=== PATIENT | female | born 1945 | race Caucasian/White ===

== ENCOUNTER → 2017-02-07 | Outpatient (CLI) | payer MEDICARE ==
[2016-03-12 15:15] VITALS: BP 97/66
[~2017-02-07] MED LIST: ALPH100C PO; AMLO2.5T PO; ASPI-482 PO; ASPI-630 PO; ASPI325T11 PO; DESM0.2T20 PO; FERR-26 PO; GLUC100018 PO; HYDR12.58 PO; MELO15TA6 PO; MULT-208 PO; OMEG1CAP6 PO; OMEP20TA8 PO; OXYC5TAB95 PO; PRAV20TA2 PO; TOLT4CAP PO; VITA1CAP PO
[2017-02-07 10:24] LABS: BASO % 1 % (0-3); EOS % 2 % (0-3); HEMATOCRIT 46.6 % (36.0-47.0); HEMOGLOBIN 15.4 g/dL (12.0-15.5); LYMPH # 1.3 x10^3/uL (1.0-4.8); LYMPH % 24 % (24-48); MEAN CORPUSCULAR HEMOGLOBIN 30 pg (25-35); MEAN CORPUSCULAR HGB CONC 33 g/dL (31-37); MEAN CORPUSCULAR VOLUME 92 fL (79-100); MONO % 8 % (0-9); NEUT % 65 % (31-73); PLATELET COUNT 323 x10^3/uL (140-400); RED BLOOD COUNT 5.08 x10^6/uL (3.50-5.40); RED CELL DISTRIBUTION WIDTH 13.2 % (11.5-14.5); WHITE BLOOD COUNT 5.2 x10^3/uL (4.0-11.0)
--- NOTE | 2017-02-07 10:34 | EKG ---
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 RI6.01 Electronically Signed On 02-08-2017 13:11:11 EMT BASIC by Jonnathan Reynoso
[2017-02-07 11:00] LABS: INR 0.9 (0.8-1.1)
[2017-02-07 11:30] LABS: ALBUMIN 4.2 g/dL (3.4-5.0); CALCIUM 9.1 mg/dL (8.5-10.1); CREATININE 0.7 mg/dL (0.6-1.0); GFR 82.5; POTASSIUM 3.8 mmol/L (3.5-5.1)
[2017-02-07 11:30] LABS: BILIRUBIN,URINE NEGATIVE (NEG); GLUCOSE,URINE NEGATIVE (NEG); NITRITE,URINE NEGATIVE (NEG); PROTEIN,URINE 30 mg/dL (NEG-TRACE); UROBILINOGEN,URINE 0.2 mg/dL (0.2 mg/dL)
[2017-02-07 11:46] LABS: BACTERIA,URINE FEW /HPF (0-FEW); SQUAMOUS EPITHELIAL CELL,UR OCC /LPF
--- NOTE | 2017-02-07 16:11 | RAD ---
2 views of the Chest 02/07/2017 12:07 PM Indication: PRE-OP CHEST , KNEE SURGERY Comparison: 2 views of the chest February 16, 2016 Findings: No new focal consolidation or infiltrate is identified. Exaggerated thoracic kyphosis noted. Large hiatal hernia noted similar to prior study. Linear opacity in the right lung base consistent with scarring similar to prior exam. No pneumothorax or pleural effusion is identified. No acute osseous changes are seen. Impression: Stable chest. No acute cardiopulmonary process is seen
== END | disposition home or self-care (01) ==
LOC: SURGPAT 09:04
PROVIDERS: ATTEND Orthopaedic Surgery
DX: Z01.818 Encounter for other preprocedural examination (principal); K44.9 Diaphragmatic hernia without obstruction or gangrene; M40.294 Other kyphosis, thoracic region
CPT/HCPCS: 36415; 71020; 80048; 81001; 82040; 82306; 85025; 85610; 85651; 85730; 87086; 87641; 93005

== ENCOUNTER 2017-03-08 08:48 | Inpatient (IN) | payer MEDICARE ==
[~2017-03-08 08:48] MED LIST changes: +ACETAMINOPHEN 500 MG TABLET PO; -ALPH100C PO; -AMLO2.5T PO; -ASPI-482 PO; -ASPI-630 PO; -ASPI325T11 PO; -DESM0.2T20 PO; -FERR-26 PO; -GLUC100018 PO; -HYDR12.58 PO; +KETOROLAC 30 MG, ROPIVacaine 0.5% PF 60 ML, EPINEPHrine 0.5 MG in IV NORMAL SALINE 100M... IV; +LIDOCAINE 1% PF 2 ML VIAL. ID; -MELO15TA6 PO; +MELOXICAM 7.5 MG TABLET PO; -MULT-208 PO; -OMEG1CAP6 PO; -OMEP20TA8 PO; +ONDANSETRON PF 4 MG/2 ML VIAL. IV; -OXYC5TAB95 PO; -PRAV20TA2 PO; +PROCHLORPERAZINE 10 MG/2 ML VIAL. IV; -TOLT4CAP PO; -VITA1CAP PO; +fentaNYL PF VIAL 100 MCG/2 ML VIAL IV
[2017-03-08] MEDS ORDERED: LIDOCAINE 2% PF Vial for OR 5 ML VIAL. (09:14)
[2017-03-08] MEDS ORDERED: MIDAZOLAM HCL/PF 2 MG/2 ML VIAL. (09:14)
[2017-03-08] MEDS ORDERED: ONDANSETRON PF 4 MG/2 ML VIAL. (09:14)
[2017-03-08] MEDS ORDERED: PROPOFOL 20 ML IV (09:14)
[2017-03-08] MEDS ORDERED: FAMOTIDINE 20 MG/2 ML VIAL (09:14)
[2017-03-08] MEDS ORDERED: fentaNYL PF VIAL 100 MCG/2 ML VIAL ×2 (09:14→12:31)
[2017-03-08] MEDS ORDERED: DEXAMETHASONE SOD PHOS 20 MG/5 ML VIAL. (09:14)
[2017-03-08] MEDS ORDERED: ROCURONIUM 50 MG/5 ML VIAL. (09:14)
[2017-03-08] MEDS: IV RINGERS,LACTATED 1000ML 1,000 ML IV (09:47)
[2017-03-08] MEDS ORDERED: KETOROLAC 30 MG, ROPIVacaine 0.5% PF 60 ML, EPINEPHrine 0.5 MG in IV NORMAL SALINE 100M... IV (10:30)
[2017-03-08] MEDS ORDERED: ePHEDrine PF IN SALINE 50 MG/5 ML DISP.SYRIN IV (11:58)
[2017-03-08] MEDS: TRANEXAMIC ACID 1,000 MG in IV NS 50ML -- 1ST BAG INJ (12:10)
[2017-03-08] MEDS: TOBRAMYCIN POWDER 1.2 GM VIAL. (12:50)
[2017-03-08] MEDS: VANCOMYCIN 1 GM VIAL. (12:51)
[2017-03-08] MEDS: KETOROLAC IV (12:52)
[2017-03-08] MEDS: ROPIVACAINE IV (12:52)
[2017-03-08] MEDS: EPINEPHRINE IV (12:52)
[2017-03-08] MEDS: [UNRECOGNIZED DRUG - OTHER] IV (12:52)
[2017-03-08] MEDS: TRANEXAMIC ACID 1,000 MG in IV NS 50ML -- 2ND BAG INJ (13:20)
[2017-03-08] MEDS ORDERED: GLYCOPYRROLATE 1 MG/5 ML VIAL. (13:29)
[2017-03-08] MEDS ORDERED: NEOSTIGMINE METHYLSULFATE 5 MG/5 ML SYRINGE. (13:29)
[2017-03-08] MEDS ORDERED: SEVOFLURANE > 120 MINUTES. IH (13:51)
[2017-03-08] MEDS ORDERED: 0.9 % SODIUM CHLORIDE 10 ML DISP.SYRIN. IV (14:15)
[2017-03-08] MEDS ORDERED: METOCLOPRAMIDE HCL 10 MG/2 ML VIAL. IV (14:15)
[2017-03-08] MEDS ORDERED: ACETAMINOPHEN 325 MG TABLET. PO (14:15)
[2017-03-08] MEDS ORDERED: PROCHLORPERAZINE 5 MG TABLET. PO (14:15)
[2017-03-08] MEDS ORDERED: MORPHINE SULFATE 10 MG/ML VIAL. IV (14:15)
[2017-03-08] MEDS ORDERED: DEXTROSE 50% 25 GM / 50ML DISP.SYRIN. IV (14:15)
[2017-03-08] MEDS ORDERED: MORPHINE SULFATE 4 MG/ML DISP.SYRIN. IV ×2 (14:15)
[2017-03-08] MEDS ORDERED: MORPHINE SULFATE 2 MG/ML DISP.SYRIN. IV (14:15)
[2017-03-08] MEDS ORDERED: fentaNYL PF VIAL 100 MCG/2 ML VIAL IV ×2 (14:15)
[2017-03-08] MEDS ORDERED: oxyCODONE/APAP 5/325 1 TAB TABLET PO (14:15)
[2017-03-08] MEDS ORDERED: CALCIUM CARBONATE 500 MG TAB.CHEW PO (14:15)
[2017-03-08] MEDS ORDERED: diphenhydrAMINE 50 MG/ML VIAL IV (14:15)
[2017-03-08] MEDS ORDERED: ZOLPIDEM 5 MG TABLET. PO (14:15)
[2017-03-08] MEDS ORDERED: PROCHLORPERAZINE 10 MG/2 ML VIAL. IV (14:15)
[2017-03-08] MEDS ORDERED: traMADol 50 MG TABLET PO ×2 (14:15)
[2017-03-08] MEDS: fentaNYL PF VIAL 100 MCG/2 ML VIAL IV (15:05)
[2017-03-08] MEDS: IV DEXTROSE 5 %-0.45 % NACL 1,000 ML IV (16:31)
[2017-03-08] MEDS: PANTOPRAZOLE 40 MG TABLET.DR. PO (16:33)
[2017-03-08] MEDS: FERROUS SULFATE 325 MG TABLET. PO (16:33)
[2017-03-08] MEDS: ceFAZolin SODIUM 1 GM in IV DEXTROSE 5% 50 ML IV (17:41)
[2017-03-08] MEDS: KETOROLAC 30 MG, BUPIVACAINE MPF 0.25% 20 ML, EPINEPHrine 0.5 MG in TOTAL VOLUME SYRING... INT ART (17:42)
[2017-03-08] MEDS: ATORVASTATIN CALCIUM 10 MG TABLET. PO (21:41)
[2017-03-08] MEDS: ASPIRIN ENTERIC COATED 325 MG TABLET.DR. PO (21:42)
[2017-03-09] MEDS: ceFAZolin SODIUM 1 GM in IV DEXTROSE 5% 50 ML IV ×2 (00:02→05:33)
[2017-03-09] MEDS: IV DEXTROSE 5 %-0.45 % NACL 1,000 ML IV ×4 (00:08→22:03)
[2017-03-09] MEDS: KETOROLAC 30 MG, BUPIVACAINE MPF 0.25% 20 ML, EPINEPHrine 0.5 MG in TOTAL VOLUME SYRING... INT ART (05:47)
[2017-03-09] MEDS: PANTOPRAZOLE 40 MG TABLET.DR. PO (05:48)
[2017-03-09] MEDS ORDERED: MAGNESIUM HYDROXIDE 2,400 MG/30 ML ORAL.SUSP. PO (06:00)
[2017-03-09] MEDS: SENNOSIDES/DOCUSATE 8.6/50MG TABLET. PO (08:03)
[2017-03-09] MEDS: FERROUS SULFATE 325 MG TABLET. PO ×2 (08:03→17:43)
[2017-03-09] MEDS: hydroCHLOROthiazide 12.5 MG CAPSULE PO (08:04)
[2017-03-09] MEDS: MULTIVITAMIN with MINERAL TABLET. PO (08:04)
[2017-03-09] MEDS: oxyCODONE/APAP 7.5/325 1 TAB TABLET PO ×5 (08:05→21:56)
[2017-03-09] MEDS: ASPIRIN ENTERIC COATED 325 MG TABLET.DR. PO ×2 (08:05→21:56)
[2017-03-09] MEDS: MELOXICAM 7.5 MG TABLET PO (08:05)
[2017-03-09] MEDS: VITAMIN B COMPLEX TABLET. PO (08:05)
[2017-03-09] MEDS: amLODIPine BESYLATE 2.5 MG TABLET PO (11:20)
[2017-03-09] MEDS ORDERED: BISACODYL 10 MG SUPP.RECT. PR (16:00)
[2017-03-09] MEDS: ATORVASTATIN CALCIUM 10 MG TABLET. PO (21:56)
[2017-03-10] MEDS: oxyCODONE/APAP 7.5/325 1 TAB TABLET PO ×6 (01:33→21:55)
[2017-03-10 04:42] LABS: HEMATOCRIT 31.7 % (36.0-47.0); HEMOGLOBIN 10.6 g/dL (12.0-15.5); MEAN CORPUSCULAR HGB CONC 33 g/dL (31-37)
[2017-03-10] MEDS: PANTOPRAZOLE 40 MG TABLET.DR. PO (04:53)
[2017-03-10] MEDS: MELOXICAM 7.5 MG TABLET PO (08:33)
[2017-03-10] MEDS: FERROUS SULFATE 325 MG TABLET. PO ×2 (08:33→17:54)
[2017-03-10] MEDS: MULTIVITAMIN with MINERAL TABLET. PO (08:33)
[2017-03-10] MEDS: SENNOSIDES/DOCUSATE 8.6/50MG TABLET. PO (08:33)
[2017-03-10] MEDS: VITAMIN B COMPLEX TABLET. PO (08:33)
[2017-03-10] MEDS: ASPIRIN ENTERIC COATED 325 MG TABLET.DR. PO ×2 (08:33→21:55)
[2017-03-10] MEDS: amLODIPine BESYLATE 2.5 MG TABLET PO (11:30)
[2017-03-10] MEDS: IV DEXTROSE 5 %-0.45 % NACL 1,000 ML IV ×2 (16:08→21:55)
[2017-03-10] MEDS: ATORVASTATIN CALCIUM 10 MG TABLET. PO (21:54)
[2017-03-11] MEDS: PANTOPRAZOLE 40 MG TABLET.DR. PO (04:36)
[2017-03-11] MEDS: oxyCODONE/APAP 7.5/325 1 TAB TABLET PO ×3 (04:36→12:52)
[2017-03-11 05:49] LABS: HEMATOCRIT 34.7 % (36.0-47.0); HEMOGLOBIN 11.5 g/dL (12.0-15.5); MEAN CORPUSCULAR HGB CONC 33 g/dL (31-37)
[2017-03-11] MEDS: SENNOSIDES/DOCUSATE 8.6/50MG TABLET. PO (08:45)
[2017-03-11] MEDS: VITAMIN B COMPLEX TABLET. PO (08:45)
[2017-03-11] MEDS: ASPIRIN ENTERIC COATED 325 MG TABLET.DR. PO (08:45)
[2017-03-11] MEDS: MULTIVITAMIN with MINERAL TABLET. PO (08:45)
[2017-03-11] MEDS: CHOLECALCIFEROL (VITAMIN D3) 5,000 UNIT CAPSULE PO (08:45)
[2017-03-11] MEDS: FERROUS SULFATE 325 MG TABLET. PO (08:45)
[2017-03-11] MEDS: MELOXICAM 7.5 MG TABLET PO (08:45)
[2017-03-11] MEDS: hydroCHLOROthiazide 12.5 MG CAPSULE PO (08:47)
[2017-03-11] MEDS: diphenhydrAMINE HCL 25 MG CAPSULE PO (12:51)
[2017-03-11] MEDS: amLODIPine BESYLATE 2.5 MG TABLET PO (12:55)
== END 2017-03-11 16:15 | disposition home health service (06) | DRG 470 ==
LOC: OPSVCIP 08:48 → 4 SOUTHEST 16:24
PROC: 0SRC0J9 Replacement of Right Knee Joint with Synthetic Substitute, Cemented, Open Approach (ICD-10-PCS; principal; 2017-03-08 11:00)
DX: M17.11 Unilateral primary osteoarthritis, right knee (principal); G62.9 Polyneuropathy, unspecified; E78.5 Hyperlipidemia, unspecified; I10 Essential (primary) hypertension; K21.9 Gastro-esophageal reflux disease without esophagitis; Z82.3 Family history of stroke; Z82.49 Family history of ischemic heart disease and other diseases of the circulatory system; Z90.710 Acquired absence of both cervix and uterus; Z96.652 Presence of left artificial knee joint; Z88.5 Allergy status to narcotic agent; Z88.8 Allergy status to other drugs, medicaments and biological substances
CPT/HCPCS: 36415; 73560; 85014; 85018; 86850; 86900; 86901; 88305; 88311; 97116-GP; 97150-GP; 97162-GP; 97166-GO; 97530-GP; 97535-GO; C1713; J0171; J0690; J1100; J1885; J2250; J2270; J2405; J2704; J2710; J2795; J3010; J3260; J3370; J3490; J7030; J7120; Q0163; S0028

== ENCOUNTER → 2017-08-30 | Outpatient (CLI) | payer MEDICARE ==
[2017-08-30 12:39] LABS: C-REACTIVE PROTEIN 1.9 mg/L (0-3.3)
[2017-08-30 13:08] LABS: SEDIMENTATION RATE 8 (0-25)
== END | disposition home or self-care (01) ==
LOC: LAB 11:27
DX: M25.562 Pain in left knee (principal); I10 Essential (primary) hypertension; E78.5 Hyperlipidemia, unspecified; K21.9 Gastro-esophageal reflux disease without esophagitis
CPT/HCPCS: 36415; 85651; 86140

== ENCOUNTER → 2018-11-14 | Outpatient (CLI) | payer MEDICARE ==
[2017-03-11 16:52] VITALS: BP 114/56
[~2018-11-14] MED LIST changes: -ACETAMINOPHEN 500 MG TABLET PO; +ALPH100C PO; +AMLO2.5T5 PO; +ASPI-482 PO; +ASPI-630 PO; +ASPI325T11 PO; +CHOL500016 PO; +DESM0.2T20 PO; +FERR325T14 PO; +GLUC100018 PO; +HYDR12.58 PO; -KETOROLAC 30 MG, ROPIVacaine 0.5% PF 60 ML, EPINEPHrine 0.5 MG in IV NORMAL SALINE 100M... IV; -LIDOCAINE 1% PF 2 ML VIAL. ID; +MELO15TA6 PO; -MELOXICAM 7.5 MG TABLET PO; +MULT-208 PO; +OMEG1CAP6 PO; +OMEP20TA8 PO; -ONDANSETRON PF 4 MG/2 ML VIAL. IV; +OXYC5TAB4 PO; +PRAV20TA2 PO; -PROCHLORPERAZINE 10 MG/2 ML VIAL. IV; +SENN-37 PO; +TOLT4CAP PO; +VITA1CAP PO; -fentaNYL PF VIAL 100 MCG/2 ML VIAL IV
--- NOTE | 2018-11-14 15:03 | RAD ---
EXAM: CT bilateral knees without contrast DATE: 11/14/2018 10:00 AM COMPARISON: No prior INDICATION: Bilateral knee arthroplasty TECHNIQUE: Helical CT was performed through both knees without contrast. 2-D reformatted sagittal and coronal images were created at the CT console workstation. PQRS compliance statement - One or more of the following individualized dose reduction techniques were utilized for this study: 1. Automated exposure control 2. Adjustment of the mA and/or kV according to patient size 3. Use of iterative reconstruction technique FINDINGS: Left knee: Changes of left total knee arthroplasty are seen. Within the limitations of streak artifact, components appear well-seated without significant periprosthetic lucency. No evidence for acute fracture. Neutral patellar tracking. Small left knee joint effusion. Right knee: Changes of right total knee arthroplasty are seen. Within the constraints of streak artifact, components appear well seated without significant periprosthetic lucency. Neutral patellar tracking. No evidence for acute fracture. Small right knee joint effusion. IMPRESSION: 1. Bilateral total knee arthroplasties, in good alignment without definite hardware complication or fracture. Electronically signed by: Sloan San MD (11/14/2018 3:00 PM) [facility]
== END | disposition home or self-care (01) ==
LOC: CT 09:47
PROVIDERS: ATTEND Orthopaedic Surgery
DX: M25.462 Effusion, left knee (principal); M25.461 Effusion, right knee; Z96.653 Presence of artificial knee joint, bilateral
CPT/HCPCS: 73700

== ENCOUNTER → 2019-04-03 | Outpatient (CLI) | payer MEDICARE ==
[2017-03-11 16:52] VITALS: BP 114/56
--- NOTE | 2019-04-03 18:14 | KCIC ---
DEXA scan 04/03/2019 Clinical History: Postmenopausal female. Risk factors for breast processes. Technique: DEXA of the lumbar spine and left hip was performed. FINDINGS: Comparison study is dated 05/29/2012.. The bone mineral density of the lumbar spine is 1.165 g/cm2 which corresponds with a T-score of 1.1 . This is within normal limits. The mean bone mineral density lumbar spine has decreased since the previous study where it measured 1.245 g/sq cm. The mean bone mineral density of the left hip is 0.804 g/sq cm. This corresponds to a T score of -1.1 . This is consistent with mild osteopenia. The mean bone mineral density of the left hip has decreased since the previous study where it measured 0.967 g/sq cm. By [employer] on Osteoporosis criteria, a T score of 0 to-1 SD is considered to be within normal limits. A T score of -1 to -2.5 SD is considered osteopenia. A T score less than -2.5 SD is considered osteoporosis Impression: 1. The mean bone mineral density of the lumbar spine is within normal limits. 2. Mild osteopenia of the left hip. 3. The patient's mean bone mineral densities have decreased since the previous study. Electronically signed by: Hernan Sumner MD (04/03/2019 6:11 PM) [id number]
== END | disposition home or self-care (01) ==
LOC: KCIC DEXA 11:37
PROVIDERS: ATTEND Family Medicine
DX: Z13.820 Encounter for screening for osteoporosis (principal); M85.88 Other specified disorders of bone density and structure, other site; Z78.0 Asymptomatic menopausal state
CPT/HCPCS: 77080

== ENCOUNTER → 2019-04-27 | Day surgery (SDC) | payer MEDICARE ==
[~2019-04-27] MED LIST changes: +IV RINGERS,LACTATED 1000ML 1,000 ML IV SCH; +LIDOCAINE 2% PF 5 ML VIAL. ONE; +PROPOFOL 40 ML IV ONE
[2019-04-27 09:24] VITALS: BP 136/84
== END ==
LOC: ENDOS 07:32
PROVIDERS: ATTEND Internal Medicine Gastroenterology
DX: Z12.11 Encounter for screening for malignant neoplasm of colon (principal); K57.30 Diverticulosis of large intestine without perforation or abscess without bleeding; K64.0 First degree hemorrhoids; K21.9 Gastro-esophageal reflux disease without esophagitis; I10 Essential (primary) hypertension; E78.00 Pure hypercholesterolemia, unspecified; F15.90 Other stimulant use, unspecified, uncomplicated; Z88.5 Allergy status to narcotic agent; Z88.8 Allergy status to other drugs, medicaments and biological substances; Z87.39 Personal history of other diseases of the musculoskeletal system and connective tissue; Z90.710 Acquired absence of both cervix and uterus; Z96.60 Presence of unspecified orthopedic joint implant; Z98.890 Other specified postprocedural states
CPT/HCPCS: G0121; J2001; J2704; 45378